=== PATIENT | female | born 1995 | race Caucasian/White ===

== ENCOUNTER 2022-09-07 15:05 | Emergency (ER) | payer BC ==
[2022-09-07 15:32] VITALS: BP 119/88; PULSE 67; RESP 16; TEMP 98.8; BMI 20.5
[2022-09-07 16:00] LABS: HCG,QUALITATIVE URINE Negative
[2022-09-07 16:08] LABS: HEMATOCRIT 39.5 % (32.4-45.2); HEMOGLOBIN 13.6 G/dL (10.7-15.3); MCH 30.7 pg (25.7-33.7); MCHC 34.3 g/dl (32.0-36.0); MEAN CELL VOLUME 89.4 fl (80-96); MEAN PLT VOLUME 8.3 fl (7.5-11.1); RBC 4.42 10^6/uL (3.60-5.2); RDW 13.8 % (11.6-15.6); WHITE BLOOD COUNT 4.5 10^3/uL (4.0-10.8)
[2022-09-07 16:14] LABS: ALBUMIN 4.3 g/dl (3.4-5.0); BILIRUBIN,TOTAL 1.3 mg/dl (0.2-1); CREATININE 0.7 mg/dl (0.55-1.3); POTASSIUM 4.3 mmol/L (3.5-5.1); TOT PROT 6.9 g/dl (6.4-8.2)
[2022-09-07] MEDS ORDERED: IBUPROFEN 600 MG TABLET (FP) PO ONE ×2 (16:47→17:30)
[2022-09-07 16:57] LABS: PLATELET ESTIMATE ADEQUATE
== END 2022-09-07 19:45 | disposition home or self-care (01) ==
LOC: FER 15:05
DX: R10.31 Right lower quadrant pain (principal); R10.2 Pelvic and perineal pain; R11.0 Nausea; N83.202 Unspecified ovarian cyst, left side
CPT/HCPCS: 36415; 74177-TC; 76830-TC; 80053; 81003; 84703; 85027; 87086; 99285-25; Q9967